=== PATIENT | female | born 1975 | race Caucasian/White ===

== ENCOUNTER 2016-07-11 02:41 | Emergency (ER) | payer BC ==
[~2016-07-11] VITALS: Ht 172.7 cm; Wt 88.9 kg
[2016-07-11 03:18] LABS: HEMATOCRIT 42.7 % (36.0-46.0); MCH 28.5 PG (29.0-34.0); MCHC 33.7 G/DL (30.0-36.0); MCV 84.4 FL (83-99); MEAN PLAT.VOLUME 10.6 uM^3 (9.5-12.4); PLATELET COUNT 293 K/uL (156-360); RBC DIS.WIDTH-CV 13.4 % (11.8-14.6); RBC DIS.WIDTH-SD 41.1 % (39-53); RED BLOOD COUNT 5.06 M/uL (3.80-5.20); WHITE BLOOD COUNT 10.7 K/uL (4.1-10.2)
[2016-07-11 03:29] LABS: CHLORIDE 107 mEq/L (99-109); POTASSIUM 3.8 mEq/L (3.7-5.4); SODIUM 139 mEq/L (136-147)
[2016-07-11 03:30] LABS: GLUCOSE 96 mg/dL (70-99)
[2016-07-11 03:32] LABS: ANION GAP 12 MEQ/L (2-14)
[2016-07-11 03:35] LABS: UREA NITROGEN (BUN) 19 mg/dL (9-23)
[2016-07-11 03:38] LABS: GFR ESTIMATE (CALCULATED) > 59 mL/min/; TROP-I INTERPRETATION NEGATIVE; TROPONIN-I < 0.01 ng/mL (0.0-0.30)
[2016-07-11] MEDS ORDERED: ZYRTEC10 M2 PO (07:10)
[2016-07-11] MEDS ORDERED: VIORELE 28 DAY1 EACH PO (07:10)
[2016-07-11 07:15] VITALS: BP 155/103
[2016-07-11 08:12] LABS: ADD MIUA? YES; BILIRUBIN NEGATIVE; BLOOD NEGATIVE; COLOR LT YELLOW ((YELLOW)); GLUCOSE (STRIP) NEGATIVE; KETONES NEGATIVE; LEUKOCYTES MODERATE; NITRITE NEGATIVE; PH, URINE 6.5 (5-8); PROTEIN (STRIP) NEGATIVE; SPECIFIC GRAVITY 1.018 (1.000-1.030); UROBILINOGEN 0.2 MG/DL (0.2-1.0)
[2016-07-11 08:22] LABS: BACTERIA 2+; CASTS NONE SEEN /LPF; CRYSTALS NONE SEEN; EPITHELIAL CELLS 1+; MUCUS NONE SEEN; PATHOLOGICAL CAST NONE SEEN; RED BLOOD CELLS 0-5 /HPF (0-5); SMALL ROUND CELL NONE SEEN; UCUL ADDED? YES; WHITE BLOOD CELLS 20-30 /HPF (0-5); YEAST-LIKE CELL NONE SEEN
[2016-07-11] MEDS ORDERED: MACROBID100 MG PO (08:38)
[2016-07-11] MEDS ORDERED: MILK OF MAGN PO (08:38)
== END 2016-07-11 08:53 | disposition home or self-care (01) ==
LOC: EME 02:41
PROVIDERS: Emergency Medicine
DX: N39.0 Urinary tract infection, site not specified (principal); K59.00 Constipation, unspecified; R07.9 Chest pain, unspecified; Z87.442 Personal history of urinary calculi; Z88.2 Allergy status to sulfonamides
CPT/HCPCS: 71020; 74176; 80048; 81003; 84484; 85027; 87086; 93005; 99281; 99284